=== PATIENT | male | born 1985 | race Two or more races ===

== ENCOUNTER 2018-06-16 16:24 | Emergency (ER) | payer MEDICAID ==
[~2018-06-16] VITALS: Ht 180.3 cm; Wt 65.8 kg
[2018-06-16 16:24] VITALS: BP 144/98
[~2018-06-16 16:24] MED LIST: ALPR2TAB2 PO; NAPR-1009 PO
[2018-06-16] MEDS ORDERED: HYDROCODONE/APAP 10/325MG 1 EA TABLET ONE (17:37)
[2018-06-16] MEDS ORDERED: HYDROCODONE/APAP 10/325MG 1 EA TABLET PO ONE (18:00)
== END 2018-06-16 17:56 | disposition home or self-care (01) ==
LOC: ER 16:31
DX: G89.29 Other chronic pain (principal); M54.5 Low back pain; F41.9 Anxiety disorder, unspecified; F43.10 Post-traumatic stress disorder, unspecified; Z76.0 Encounter for issue of repeat prescription; Z88.6 Allergy status to analgesic agent; Z88.9 Allergy status to unspecified drugs, medicaments and biological substances
CPT/HCPCS: 99283; A4606

== ENCOUNTER 2019-07-31 19:35 | Emergency (ER) | payer BC, MEDICAID ==
[~2019-07-31] VITALS: Ht 180.3 cm; Wt 74.8 kg
[2019-07-31 19:37] VITALS: BP 128/72
--- NOTE | 2019-07-31 19:41 | NUR ---
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
--- NOTE | 2019-07-31 20:08 | NUR ---
Patient discharged to home in stable condition. Written and verbal after care instructions given. Patient verbalizes understanding of instruction.
== END 2019-07-31 20:09 | disposition home or self-care (01) ==
LOC: ER 19:43
DX: G89.29 Other chronic pain (principal); M54.5 Low back pain; J32.9 Chronic sinusitis, unspecified; F43.10 Post-traumatic stress disorder, unspecified; F41.0 Panic disorder [episodic paroxysmal anxiety]; Z88.6 Allergy status to analgesic agent; Z79.899 Other long term (current) drug therapy